=== PATIENT | male | born 1955 | race Caucasian/White ===

== ENCOUNTER 2019-10-04 07:14 | Inpatient (IN) ==
--- NOTE | 2019-09-21 22:42 | PAT Medication Instructions ---
Medication Instructions Date of Service September 21, 2019 Home Medications Celebrex 1 dose PO UD PRN lisinopril 20 mg PO QAM naproxen sodium [Aleve] 220 mg PO UD PRN sildenafil 100 mg PO UD PRN ASK your surgeon for instructions Celebrex 1 dose PO UD PRN naproxen sodium [Aleve] 220 mg PO UD PRN DO NOT take the morning of surgery lisinopril 20 mg PO QAM Take evening before surgery sildenafil 100 mg PO UD PRN (if needed) Other Notes If you have any questions please call us at [phone] or [phone] or [phone] or [phone]
--- NOTE | 2019-09-22 11:43 | Anesthesiology Consultation ---
Date of Service September 22, 2019 Assessment & Plan (1) Encounter for pre-operative examination: Chart Review Chart Review: Acceptable Risk for Surgery (pending pre op testing -- labs, ekg, cxr, and surgeon-ordered PCP clearance) and Patient seen in Pre Admission Testing Teaching & Discussion Instructed NPO after midnight before surgery, except medications with 15 cc of water. Medication instructions provided according to the PAT guidelines. History Surgery Operation Date: 10/04/19 07:00 Proposed Procedures p Left Total Knee Arthroplasty - Brodie Hobbs DO Height/Weight Height: 5 ft 10 in Weight: 76.2 kg Allergies Allergy/AdvReac Type Severity Reaction Status Date / Time Penicillins Allergy Unknown A KID, Verified 09/15/19 09:01 ITCHY ON BOTTOM OF FEET AND HANDS Medications Home Medications Medication Instructions Recorded Confirmed Last Taken Celebrex 1 dose PO UD PRN 09/15/19 09/15/19 Unknown lisinopril 20 mg PO QAM 09/15/19 09/15/19 09/15/19 naproxen sodium [Aleve] 220 mg PO UD PRN 09/15/19 09/15/19 Unknown sildenafil 100 mg PO UD PRN 09/15/19 09/15/19 Unknown Past Medical History Medical History Anxiety Hypertension Osteoarthritis Exercise / Class Metabolic Activity II 4-5 Yardwork/Stairs/Walk up hill (Using crutch to keep weight off of operative knee) Past Surgical History Surgical History History of arthroscopy of right knee History of carpal tunnel surgery of left wrist History of carpal tunnel surgery of right wrist History of colonoscopy History of left knee surgery Past Anesthesia History No Hx of Anesthesia Complications and No Family Hx of Anesthesia Complications History of PONV No Hx of PONV and No Hx of Motion Sickness Social History Smoking Status: Current every day smoker tobacco type: cigars Smoking cigarettes per day: 2 A DAY/ ADVISED NPO Do You Dip or Chew Tobacco: No Hx Alcohol Use: No Hx Substance Use: No substance use type: does not use Review of Systems Pt denies any recent chest pain, shortness of breath, palpitations, cough, fever or URI. Physical Exam Vital Signs BP: 131/72 P: 59bpm SPO2: 97% RA T: 97.8 F R: 16 ENMT Mouth: + dental restorations (gold fillings); no chipped teeth and no loose teeth Thyromental Distance: > or= 3.5 Finger Breadths (4) Mallampati Class: I Neck normal visual inspection and + facial hair (short mustache); neck extension not limited Respiratory normal respiratory effort Auscultation: lungs clear to auscultation bilaterally Cardiovascular Rate/Rhythm: regular rate and regular rhythm Heart Sounds: no murmur Vessels: no carotid bruit Extremities: no edema
[2019-09-22 12:55] LABS: Appearance Urine Clear (Clear); Bilirubin Urine Negative (Negative); Blood Urine Negative (Negative); Color Urine Yellow; Glucose Urine UA Negative (Negative); Ketones Urine Negative (Negative); Leukocyte Esterase Urine Negative (Negative); Nitrite Urine Negative (Negative); Protein Urine Negative (Negative); Specific Gravity Urine 1.014 (1.000-1.030); Urobilinogen Urine Negative (Negative); pH Urine 6.5 (4.5-7.5)
--- NOTE | 2019-09-22 12:55 | XRay Report ---
TWO VIEW CHEST CLINICAL HISTORY: Preoperative examination. FINDINGS: PA and lateral chest radiographs are obtained No prior studies are available for comparison at the time of dictation. The PA view is degraded by patient rotation. The heart is top normal for p rojection noting atherosclerotic calcification of the thoracic aorta. The lungs and pleural spaces a re clear. There is no pneumothorax. The skeletal structures are osteopenic. The bony thorax appears i ntact. Degenerative change is noted in the thoracic spine. IMPRESSION: No active disease in the chest. ACT 112: Negative or not required by law. Electronically signed by: Mat Brandon M.D. 09/22/2019 12:54 PM
[2019-09-22 12:56] LABS: Basophils # (auto) 0.02 K/uL (0-0.2); Basophils % (auto) 0.3 %; Eosinophils # (auto) 0.02 K/uL (0-0.5); Eosinophils % (auto) 0.3 %; Hematocrit (blood only) 35.7 % (42-52); Hemoglobin 11.8 g/dL (14.0-18.0); Immature Granulocytes # (auto) 0.01 K/uL (0.00-0.02); Immature Granulocytes % (auto) 0.2 %; Lymphocytes # (auto) 0.63 K/uL (1.2-3.4); Lymphocytes % (auto) 9.8 %; Mean Corpuscular Hemoglobin 31.1 pg (25-34); Mean Corpuscular Hgb Conc 33.1 g/dL (32-36); Mean Corpuscular Volume 94.2 fL (80-100); Mean Platelet Volume 9.3 fL (7.4-10.4); Monocytes # (auto) 0.33 K/uL (0.11-0.59); Monocytes % (auto) 5.1 %; Neutrophils # (auto) 5.42 K/uL (1.4-6.5); Neutrophils % (auto) 84.3 %; Platelet Count 355 K/uL (130-400); RDW Standard Deviation 48.2 fL (36.4-46.3); Red Blood Count 3.79 M/uL (4.7-6.1); White Blood Count 6.43 K/uL (4.8-10.8)
[2019-09-22 13:03] LABS: Albumin Level 3.5 gm/dl (3.4-5.0); Calcium 9.3 mg/dl (8.5-10.1); Creatinine Clr Calc Pharmacy 90.5 ml/min; Est GFR (African American) 106.5; Est GFR (Non-African American) 91.9; Potassium 4.1 mmol/L (3.5-5.1)
[2019-09-22 13:07] LABS: Estimated Average Glucose 117 mg/dl; Hemoglobin A1C 5.7 % (4.5-5.6)
[2019-09-22 13:08] LABS: Partial Thromboplastin Ratio 0.9; Partial Thromboplastin Time 25.4 Seconds (21.0-31.0); Prothrombin Time 10.5 Seconds (9.0-12.0)
--- NOTE | 2019-09-22 16:28 | History & Physical Report ---
Date of Service September 22, 2019 date of surgery: 10/04/19 Assessment & Plan (1) Arthritis of knee, left: Risks and benefits of procedure discussed in detail today, patient would like to proceed with a Left total knee replacement at [facility] as scheduled. will obtain medical clearance from Dr Valles prior to surgery as well as obtain PATs at [facility]. Will place on ASA 81mg po bid x 1 month post op, f/u 2 weeks post op for routine post-operative care and x-ray, sooner if having any problems. will make arrangements for OPPT at [facility] at the time of discharge. At this point in time, has failed conservative measures and would like to proceed with surgical intervention. History of Present Illness Chief Complaint: left knee pain Primary Care Provider: Mike Valles Mr Walker is a 63 year old male who complains of left knee pain, presents for pre-op evaluation prior to a left total knee replacement at [facility]. He presents with pain and stiffness on the left side. He states that the symptoms have been chronic non-traumatic. The symptoms occur constantly with intermittent worsening. Currently the patient states that the symptoms are moderate-severe. The pain is described as aching and throbbing. He rates his current pain as 8/10. The symptoms are aggravated by ascending stairs, descending stairs, walki ng and work activities. In addition to left knee pain the patient is also experiencing crunching, instability, weakness, pain in bed, nighttime awakening and limping. Prior NSAIDs include Aleve and Ibuprofen. Allergies Allergy/AdvReac Type Severity Reaction Status Date / Time Penicillins Allergy Unknown A KID, Verified 09/15/19 09:01 ITCHY ON BOTTOM OF FEET AND HANDS Home Medications Home Medications Medication Instructions Recorded Confirmed Type Celebrex 1 dose PO UD PRN 09/15/19 09/15/19 History lisinopril 20 mg PO QAM 09/15/19 09/15/19 History naproxen sodium [Aleve] 220 mg PO UD PRN 09/15/19 09/15/19 History sildenafil 100 mg PO UD PRN 09/15/19 09/15/19 History Past Med/Surg History Medical History Anxiety Hypertension Osteoarthritis Surgical History History of arthroscopy of right knee History of carpal tunnel surgery of left wrist History of carpal tunnel surgery of right wrist History of colonoscopy History of left knee surgery Family History (Updated 09/22/19 @ 16:25 by Pritesh Jose PA-C) Unknown No family history of adverse response to anesthesia Social History Preferred Language: Chinese Communication Ability: Effective Sewer Pipe Layer Required: No Beliefs That Will Affect Care: None Current Living Situation: Spouse Other Information That Helps Us Care for You: No Feels Safe at Home: Yes Smoking Status: Current every day smoker Tobacco Type: cigars ; Cigarettes Per Day: 2 A DAY/ ADVISED NPO ; Do You Dip or Chew Tobacco: No ; Hx Alcohol Use: No Hx Substance Use: No Review of Systems Review of Systems: All systems reviewed & are unremarkable except as noted in HPI & below Constitutional: no fever, no chills and no sweats Respiratory: no cough and no dyspnea Cardiovascular: no chest pain, no dyspnea and no orthopnea Gastrointestinal: no abdominal pain, no nausea and no vomiting Musculoskeletal: as per Subjective / HPI Physical Exam Physical Exam: Ht: 5ft 10in wt: 76.2kg BP: 116/62 Pulse: 62 Constitutional: WD/WN, vitals as above no acute distress Respiratory: normal respiratory effort, lungs clear to auscultation no respiratory distress, no labored breathing and does not use accessory muscles Cardiovascular: RRR, no murmur, no edema Gastrointestinal (Abdomen): normal bowel sounds, soft, nontender, no hepat osplenomegaly Musculoskeletal: Knee: + knee abnormal to inspection (Left knee), + deformity (varus deformity), + effusion (+1 effusion), + surgical incision (well healed portals), + limited ROM of knee (ROM 0/3/110), + knee ROM with crepitation, + kenneth int line tenderness (medial joint line) and + Rogers's sign positive; no skin erythema, no ecchymosis, no valgus laxity, no varus laxity, anterior drawer test negative, Tuyet's sign negative and pivot shift test negative Results & Data Laboratory Results Laboratory Results WBC 6.43 K/uL (4.8-10.8) 09/22/19 11:58 RBC 3.79 M/uL (4.7-6.1) L 09/22/19 11:58 Hgb 11.8 g/dL (14.0-18.0) L 09/22/19 11:58 Hct 35.7 % (42-52) L 09/22/19 11:58 MCV 94.2 fL (80-100) 09/22/19 11:58 MCH 31.1 pg (25-34) 09/22/19 11:58 MCHC 33.1 g/dL (32-36) 09/22/19 11:58 RDW Std Deviation 48.2 fL (36.4-46.3) H 09/22/19 11:58 RDW Coeff of Helen 14.0 % (11.5-14.5) 09/22/19 11:58 Plt Count 355 K/uL (130-400) 09/22/19 11:58 MPV 9.3 fL (7.4-10.4) 09/22/19 11:58 Immature Gran % (Auto) 0.2 % 09/22/19 11:58 Neut % (Auto) 84.3 % 09/22/19 11:58 Lymph % (Auto) 9.8 % 09/22/19 11:58 [place] % (Auto) 5.1 % 09/22/19 11:58 Eos % (Auto) 0.3 % 09/22/19 11:58 Baso % (Auto) 0.3 % 09/22/19 11:58 Immature Gran # (Auto) 0.01 K/uL (0.00-0.02) 09/22/19 11:58 Neut # (Auto) 5.42 K/uL (1.4-6.5) 09/22/19 11:58 Lymph # (Auto) 0.63 K/uL (1.2-3.4) L 09/22/19 11:58 [place] # (Auto) 0.33 K/uL (0.11-0.59) 09/22/19 11:58 Eos # (Auto) 0.02 K/uL (0-0.5) 09/22/19 11:58 Baso # (Auto) 0.02 K/uL (0-0.2) 09/22/19 11:58 PT 10.5 Seconds (9.0-12.0) 09/22/19 11:58 INR 1.0 (0.9-1.1) 09/22/19 11:58 APTT 25.4 Seconds (21.0-31.0) 09/22/19 11:58 PTT Ratio 0.9 09/22/19 11:58 Sodium 136 mmol/L (136-145) 09/22/19 11:58 Potassium 4.1 mmol/L (3.5-5.1) 09/22/19 11:58 Chloride 105 mmol/L (98-107) 09/22/19 11:58 Carbon Dioxide 26 mmol/L (21-32) 09/22/19 11:58 Anion Gap 6.0 (3-11) 09/22/19 11:58 BUN 10 mg/dl (7-18) 09/22/19 11:58 Creatinine 0.84 mg/dl (0.6-1.4) 09/22/19 11:58 Est Cr Clr Drug Dosing 90.5 ml/min 09/22/19 11:58 Est GFR ( Amer) 106.5 09/22/19 11:58 Est GFR (Non-Af Amer) 91.9 09/22/19 11:58 BUN/Creatinine Ratio 12.0 (10-20) 09/22/19 11:58 Glucose 111 mg/dl (70-99) H 09/22/19 11:58 Estimat Average Glucose 117 mg/dl 09/22/19 11:58 Hemoglobin A1c 5.7 % (4.5-5.6) H 09/22/19 11:58 Calcium 9.3 mg/dl (8.5-10.1) 09/22/19 11:58 Albumin 3.5 gm/dl (3.4-5.0) 09/22/19 11:58 Urine Color Yellow 09/22/19 11:58 Urine Appearance Clear (Clear) 09/22/19 11:58 Urine pH 6.5 (4.5-7.5) 09/22/19 11:58 Ur Specific Alex 1.014 (1.000-1.030) 09/22/19 11:58 Urine Protein Negative (Negative) 09/22/19 11:58 Urine Glucose (UA) Negative (Negative) 09/22/19 11:58 Urine Ketones Negative (Negative) 09/22/19 11:58 Urine Blood Negative (Negative) 09/22/19 11:58 Urine Nitrite Negative (Negative) 09/22/19 11:58 Urine Bilirubin Negative (Negative) 09/22/19 11:58 Urine Urobilinogen Negative (Negative) 09/22/19 11:58 Ur Leukocyte Esterase Negative (Negative) 09/22/19 11:58 Blood Type A Positive 09/22/19 11:58 Antibody Screen NEGATIVE 09/22/19 11:58 Diagnostic Findings Left Knee X-ray from 08/08/19 left knee series confirm advanced degenerative changes to the left knee, greatest medial compartments and patellofemoral joint, showing joint space narro wing, osteophyte formation and subchondral sclerosis. no acute bony pathology noted.
--- NOTE | 2019-09-23 07:44 | Electrocardiogram Report ---
Test Reason : Blood Pressure : / mmHG Vent. Rate : 057 BPM Atrial Rate : 057 BPM P-R Int : 180 ms QRS Dur : 084 ms QT Int : 430 ms P-R-T Axes : 082 051 049 degrees QTc Int : 418 ms Sinus bradycardia Moderate voltage criteria for LVH, may be normal variant Abnormal ECG No previous ECGs available Confirmed by Pop Heredia ([id number]) on 09/23/2019 7:43:42 AM Referred By: Brodie Hobbs Confirmed By:Iasak Heredia
[~2019-10-04 07:14] MED LIST: ACETAMINOPHEN 500 MG TAB PO SCH; BUPIVACAINE 0.25% 30 ML VIAL ONE; BUPIVACAINE 0.5 % 5 MG/1 ML PF 10ML VIAL ONE; CEFAZOLIN 1000MG 1,000 MG/7.5 ML SYR IV SCH; CeleBREX 200 MG CAP PO SCH; FAMOTIDINE 20 MG TAB PO SCH; GABAPENTIN 300 MG CAP PO SCH; LR 500ML BOLUS, THEN 15ML/HR IV SCH; METOCLOPRAMIDE HCL 10 MG TABLET PO SCH; ROPIVACAINE 0.5% HCL/PF 150 MG, BUPIVACAINE 0.5% MPF 30 ML, EPINEPHrine 30MG/30ML (OR U... INFIL SCH; TRANEXAMIC ACID 1,000 MG **IV Intra-op IV SCH; VANCOMYCIN HCL 1,000 MG/270 ML BAG IV SCH; VANCOMYCIN HCL 1,250 MG in SODIUM CHLORIDE 0.9% 250 ML IV SCH; dexAMETHasone 4 MG TAB PO SCH
[2019-10-04] MEDS ORDERED: MIDAZOLAM HCL 1 MG/ML 2ML VIAL ONE (07:37)
[2019-10-04] MEDS ORDERED: fentaNYL citrate 100 MCG/2 ML VIAL ONE (07:37)
--- NOTE | 2019-10-04 08:21 | History & Physical Bridge Note ---
Date of Service October 04, 2019 History & Physical Bridge Note I have examined the patient, reviewed the History & Physical and in the interval since the performance of the History & Physical I have noted the following changes of clinical significance: no changes noted
[2019-10-04] MEDS ORDERED: ATROPINE SULFATE 0.1 MG/ML 10ML SYR IV PRN (08:24)
[2019-10-04] MEDS ORDERED: ONDANSETRON INJ 2 MG/ML 2 ML VIAL IV PRN ×2 (08:24→12:56)
[2019-10-04] MEDS ORDERED: fentaNYL citrate 100 MCG/2 ML VIAL IV PRN (08:24)
[2019-10-04] MEDS ORDERED: ePHEDrine sulfate 50 MG/ML AMP IV PRN (08:24)
[2019-10-04] MEDS ORDERED: ORTHO JOINT ANESTHETIC ONE (08:56)
[2019-10-04] MEDS ORDERED: BACITRACIN INJ 50,000 UNIT VIAL ONE (08:56)
[2019-10-04] MEDS: TRANEXAMIC ACID 1,000 MG **IV Pre-op IV SCH ×2 (09:33→09:50)
[2019-10-04] MEDS ORDERED: PROPOFOL IV EMULSION 10 MG/ML 20 ML VIAL IV ONE (10:37)
--- NOTE | 2019-10-04 11:24 | Operative Report ---
Post Operative Report Pre & Post Diagnosis Operation Date: 10/04/19 10:00 Pre-Op Diagnosis: LEFT KNEE OSTEOARTHRITIS Post-Op Diagnosis: LEFT KNEE OSTEOARTHRITIS I identified the patient and participated in the time-out.: Yes Procedure Operation Date: 10/04/19 10:00 Actual Procedures utilizing [employer] total knee arthroplasty patient matched size femur 7 tibia 6 polyethylene 13 patella 35 oval p Left Total Knee Arthroplasty(Left) - Brodie Hobbs DO Surgeon Brodie Hobbs DO Asset Card Clerk LANIE Agustin Estimated Blood Loss 5 Findings Consistent with Post-Op Diagnosis With high-end severe degenerative joint disease with significant varus alignment large medial osteophytes medial bone loss [id number] subcortical and subchondral cystic formations marginal osteophytes large effusion with a 15 degree flexion contracture and a high-grade varus alignment Specimens Bone cartilage Drains Medium bore Hemovac Complications none Disposition Accompanied Patient To Recovery: No Disposition: Recovery Room Indications Patient presents as a [age]-year-old white male with severe end-stage degenerative joint disease left knee bone loss medially with varus alignment 15 degree flexion contracture failed attempted conservative management clinic physical therapy anti-inflammatories relative rest activity modification corticosteroid injections bracing and nonsteroidal anti-inflammatories patient presents for left total knee arthroplasty Description of Procedure I initiation of general anesthesia the left lower extremity socially prepped and draped usual fashion for surgery this type anterior midline incision was made dissection carried down to the region the medial parapatellar retinaculum the medial parapatellar retinacular incision was made with patella subluxed lateralward large medial osteophytes were noted with loose fragments of bone which were removed the patella was everted and was the arthritic surface was resected and sized to a size 35 was prepared for later resurfacing subsequently a utilizing the distal femoral custom fit guide the distal femoral osteotomy cuts were made osteophytes were removed synovectomy had already been performed the proximal tibia was subsequently evaluated utilizing proximal tibial osteotomy custom fit guide the proximal tibial osteotomy was performed on the medial osteophytes were removed medial capsule was also been released around the posterior medial aspect of the proximal tibia specialized was paid to protect neurovascular structures at all times the trials of the components a size 7 femur with a size 6 tibia and a size 13 poly-gave excellent stability and full extension with excellent stability in both flexion extension mid flexion having taken trials through range of motion patellar component was placed the patella was also noted be tracking in excellent position throughout all ranges of motion the wound was then thoroughly irrigated with copious amounts of sterile saline solution a joint mix injection was placed in the posterior capsule special attention to avoid neurovascular structures the wound was once again irrigated with copious muscle sterile saline solution the final components were brought into the field and prepared cement was mixed and subsequently the components were cemented in order tibia femur patella all excess cement was removed stability was noted to be excellent in both extension flexion mid flexion patellar tracking was noted to be excellent subsequently the medial parapatellar incision closed with #1 Vicryl subcu was closed with 3-0 Vicryl skin was closed with running Monocryl and skin glue sterile compressive dressing was placed a medium bore Hemovac in place in the deep wound please note LANIE Henriquez was necessary prepping draping traction wound closure defect subcu skin was necessary for the case I attest to the content of the Intraoperative Record and any orders documented therein. Any exceptions are noted below.
[2019-10-04] MEDS ORDERED: METOCLOPRAMIDE HCL INJ 5 MG/ML 2 ML VIAL IV PRN (12:56)
[2019-10-04] MEDS ORDERED: OXYCODONE HCL IR 5 MG TAB (IMMEDIATE RELEASE) PO PRN (12:56)
[2019-10-04] MEDS ORDERED: bisacodyL 10 MG SUPP PR PRN (12:56)
[2019-10-04] MEDS ORDERED: MAGNESIUM HYDROXIDE SUSP 30 ML UDC PO PRN (12:56)
[2019-10-04] MEDS ORDERED: ALUMINUM/MAGNESIUM SUSP 30 ML UDC PO PRN (12:56)
[2019-10-04] MEDS ORDERED: NALOXONE HCL 0.4 MG/1 ML VIAL/CARP IV PRN (12:56)
[2019-10-04] MEDS ORDERED: HYDROmorphone INJ 1 MG/ML SYRINGE IV PRN (12:56)
[2019-10-04] MEDS: SODIUM CHLORIDE 0.9% 1000ML 1,000 ML IV SCH ×2 (13:28→21:26)
[2019-10-04] MEDS: KETOROLAC TROMETHAMINE 15 MG/ML VIAL IV SCH ×2 (13:32→20:40)
--- NOTE | 2019-10-04 13:36 | XRay Report ---
TWO VIEWS LEFT KNEE CLINICAL HISTORY: Postoperative examination. FINDINGS: AP and crosstable lateral portable views of the left knee are obtained. A left knee arthrop lasty is in near anatomic alignment. There has been undersurface remodeling of the patella. No acute fracture is seen. There are expected postoperative changes around the knee including a surgical drain , soft tissue edema, and subcutaneous gas. IMPRESSION: Expected postoperative changes status post left knee arthroplasty. No acute fracture is s een. ACT 112: Negative or not required by law. Electronically signed by: Mat Brandon M.D. 10/04/2019 1:34 PM
--- NOTE | 2019-10-04 13:51 | Anesthesiology Progress Note ---
Date of Service October 04, 2019 Anesthesia Post Procedure Vital Signs Vital Signs: Temp Pulse Pulse Pulse Resp BP Pulse Ox 10/04/19 13:49 69 16 117/64 98 10/04/19 13:43 36.5 C 63 18 109/62 98 10/04/19 13:16 36.2 C L 66 18 110/72 97 10/04/19 12:45 36.5 C 60 16 118/65 99 10/04/19 12:40 62 16 113/63 99 10/04/19 12:30 36.8 C 67 16 109/62 99 10/04/19 12:20 66 16 125/61 99 10/04/19 12:10 66 14 116/63 97 10/04/19 12:03 36.9 C 66 12 130/68 100 10/04/19 07:52 37.1 C 65 18 135/75 99 Transfer of Care Handoff Completed per policy Notes Mental Status: alert / awake / arousable Patient Amnestic to Procedure: Yes Nausea / Vomiting: adequately controlled Pain: adequately controlled Airway Patency, RR, SpO2: stable & adequate BP & HR: stable & adequate Hydration State: stable & adequate Neuraxial Anesthesia: was administered and sensory block is resolving Anesthetic Complications: no major complications apparent and Pt Satisfied with anesthetic care
[2019-10-04] MEDS: ACETAMINOPHEN 500 MG TAB PO SCH ×2 (16:29→22:22)
[2019-10-04] MEDS: CEFAZOLIN 2000MG 2,000 MG/15 ML SYR IV SCH ×2 (16:30→23:18)
[2019-10-04] MEDS: DOCUSATE SODIUM 100 MG CAP PO SCH (20:42)
[2019-10-04] MEDS ORDERED: SENNA 8.6 MG TAB PO SCH (21:00)
[2019-10-04] MEDS: ASPIRIN 81 MG ECTAB PO SCH (21:12)
[2019-10-05] MEDS: KETOROLAC TROMETHAMINE 15 MG/ML VIAL IV SCH ×2 (02:42→08:26)
[2019-10-05] MEDS: ACETAMINOPHEN 500 MG TAB PO SCH (05:19)
[2019-10-05 05:22] LABS: Hematocrit (blood only) 30.2 % (42-52); Hemoglobin 10.3 g/dL (14.0-18.0); Mean Corpuscular Hemoglobin 31.2 pg (25-34); Mean Corpuscular Hgb Conc 34.1 g/dL (32-36); Mean Corpuscular Volume 91.5 fL (80-100); Mean Platelet Volume 9.2 fL (7.4-10.4); Platelet Count 275 K/uL (130-400); RDW Coefficient of Variation 13.6 % (11.5-14.5); RDW Standard Deviation 45.3 fL (36.4-46.3); White Blood Count 13.05 K/uL (4.8-10.8)
[2019-10-05 05:40] LABS: BUN Creatinine Ratio 22.4 (10-20); Calcium 8.5 mg/dl (8.5-10.1); Creatinine Clr Calc Pharmacy 81.6 ml/min; Est GFR (African American) 100.1; Est GFR (Non-African American) 86.4
--- NOTE | 2019-10-05 07:14 | Anesthesiology Progress Note ---
Date of Service October 05, 2019 Anesthesia Post Procedure Vital Signs Vital Signs: Temp Pulse Pulse Pulse Resp BP Pulse Ox 10/05/19 02:44 36.5 C 64 18 116/64 98 10/04/19 23:25 36.4 C L 64 20 153/85 H 99 10/04/19 20:00 36.6 C 62 16 120/70 99 10/04/19 14:50 36.5 C 60 16 118/67 99 10/04/19 13:49 69 16 117/64 98 10/04/19 13:43 36.5 C 63 18 109/62 98 10/04/19 13:16 36.2 C L 66 18 110/72 97 10/04/19 12:45 36.5 C 60 16 118/65 99 10/04/19 12:40 62 16 113/63 99 10/04/19 12:30 36.8 C 67 16 109/62 99 10/04/19 12:20 66 16 125/61 99 10/04/19 12:10 66 14 116/63 97 10/04/19 12:03 36.9 C 66 12 130/68 100 10/04/19 07:52 37.1 C 65 18 135/75 99 Pain Intensity Left Knee: Pain Intensity: 1 Notes Mental Status: alert / awake / arousable and participated in evaluation Nausea / Vomiting: adequately controlled Pain: adequately controlled Airway Patency, RR, SpO2: stable & adequate BP & HR: stable & adequate Hydration State: stable & adequate Neuraxial Anesthesia: sensory block is resolving Anesthetic Complications: Pt Satisfied with anesthetic care
[2019-10-05] MEDS: DOCUSATE SODIUM 100 MG CAP PO SCH (08:25)
[2019-10-05] MEDS: ASPIRIN 81 MG ECTAB PO SCH (08:25)
--- NOTE | 2019-10-05 08:37 | Orthopedic Progress Note ---
Date of Service October 05, 2019 Assessment & Plan (1) Arthritis of knee, left: POD 1 s/p Left TKA PT/OT. WBAT. DVT prophylaxis - ASA, SCD's, PHILIPPE's Pain management - OxyIR, Hydromorphone DC plans - dc to home with Services when ready Subjective POD 1 Pt sitting in chair at bedside. No complaints this AM. Pain controlled. Had some mild pain in the knee early AM but relieved with current pain regimen. No other complaints this AM. Denies SOB,CP,LH. Hoping to go home today. Physical Exam Physical Exam: Dressings C/D/I. Calves soft,NT. N/V intact. Good DF/PF. 325ml from HV on the previous shift. Results & Data Vital Signs (Past 12 Hours) Vital Signs Temp Pulse Resp BP Pulse Ox 10/05/19 07:40 36.7 C 64 16 124/63 98 10/05/19 02:44 36.5 C 64 18 116/64 98 10/04/19 23:25 36.4 C L 64 20 153/85 H 99 Laboratory Results Laboratory Results WBC 13.05 K/uL (4.8-10.8) H 10/05/19 05:05 RBC 3.30 M/uL (4.7-6.1) L 10/05/19 05:05 Hgb 10.3 g/dL (14.0-18.0) L 10/05/19 05:05 Hct 30.2 % (42-52) L 10/05/19 05:05 MCV 91.5 fL (80-100) 10/05/19 05:05 MCH 31.2 pg (25-34) 10/05/19 05:05 MCHC 34.1 g/dL (32-36) 10/05/19 05:05 RDW Std Deviation 45.3 fL (36.4-46.3) 10/05/19 05:05 RDW Coeff of Helen 13.6 % (11.5-14.5) 10/05/19 05:05 Plt Count 275 K/uL (130-400) 10/05/19 05:05 MPV 9.2 fL (7.4-10.4) 10/05/19 05:05 Immature Gran % (Auto) 0.2 % 09/22/19 11:58 Neut % (Auto) 84.3 % 09/22/19 11:58 Lymph % (Auto) 9.8 % 09/22/19 11:58 [place] % (Auto) 5.1 % 09/22/19 11:58 Eos % (Auto) 0.3 % 09/22/19 11:58 Baso % (Auto) 0.3 % 09/22/19 11:58 Immature Gran # (Auto) 0.01 K/uL (0.00-0.02) 09/22/19 11:58 Neut # (Auto) 5.42 K/uL (1.4-6.5) 09/22/19 11:58 Lymph # (Auto) 0.63 K/uL (1.2-3.4) L 09/22/19 11:58 [place] # (Auto) 0.33 K/uL (0.11-0.59) 09/22/19 11:58 Eos # (Auto) 0.02 K/uL (0-0.5) 09/22/19 11:58 Baso # (Auto) 0.02 K/uL (0-0.2) 09/22/19 11:58 PT 10.5 Seconds (9.0-12.0) 09/22/19 11:58 INR 1.0 (0.9-1.1) 09/22/19 11:58 APTT 25.4 Seconds (21.0-31.0) 09/22/19 11:58 PTT Ratio 0.9 09/22/19 11:58 Sodium 135 mmol/L (136-145) L 10/05/19 05:05 Potassium 4.0 mmol/L (3.5-5.1) 10/05/19 05:05 Chloride 107 mmol/L (98-107) 10/05/19 05:05 Carbon Dioxide 23 mmol/L (21-32) 10/05/19 05:05 Anion Gap 5.0 (3-11) 10/05/19 05:05 BUN 21 mg/dl (7-18) H 10/05/19 05:05 Creatinine 0.92 mg/dl (0.6-1.4) 10/05/19 05:05 Est Cr Clr Drug Dosing 81.6 ml/min 10/05/19 05:05 Est GFR ( Amer) 100.1 10/05/19 05:05 Est GFR (Non-Af Amer) 86.4 10/05/19 05:05 BUN/Creatinine Ratio 22.4 (10-20) H 10/05/19 05:05 Glucose 123 mg/dl (70-99) H 10/05/19 05:05 Estimat Average Glucose 117 mg/dl 09/22/19 11:58 Hemoglobin A1c 5.7 % (4.5-5.6) H 09/22/19 11:58 Calcium 8.5 mg/dl (8.5-10.1) 10/05/19 05:05 Albumin 3.5 gm/dl (3.4-5.0) 09/22/19 11:58 Urine Color Yellow 09/22/19 11:58 Urine Appearance Clear (Clear) 09/22/19 11:58 Urine pH 6.5 (4.5-7.5) 09/22/19 11:58 Ur Specific [place] 1.014 (1.000-1.030) 09/22/19 11:58 Urine Protein Negative (Negative) 09/22/19 11:58 Urine Glucose (UA) Negative (Negative) 09/22/19 11:58 Urine Ketones Negative (Negative) 09/22/19 11:58 Urine Blood Negative (Negative) 09/22/19 11:58 Urine Nitrite Negative (Negative) 09/22/19 11:58 Urine Bilirubin Negative (Negative) 09/22/19 11:58 Urine Urobilinogen Negative (Negative) 09/22/19 11:58 Ur Leukocyte Esterase Negative (Negative) 09/22/19 11:58 Blood Type A Positive 09/22/19 11:58 Antibody Screen NEGATIVE 09/22/19 11:58
[2019-10-05] MEDS ORDERED: lisinopriL 20 MG TAB PO SCH (09:00)
[2019-10-05] MEDS ORDERED: MULTIVITAMIN TAB PO SCH (09:00)
--- NOTE | 2019-10-05 18:56 | Discharge Summary ---
Date of Service date of discharge: October 05, 2019 date of admission: 10-04-19 Admission HPI Per Admitting Provider Mr Walker is a 63 year old male who complains of left knee pain, presents for pre-op evaluation prior to a left total knee replacement at [facility]. He presents with pain and stiffness on the left side. He states that the symptoms have been chronic non-traumatic. The symptoms occur constantly with intermittent worsening. Currently the patient states that the symptoms are moderate-severe. The pain is described as aching and throbbing. He rates his current pain as 8/10. The symptoms are aggravated by ascending stairs, descending stairs, walking and work activities. In addition to left knee pain the patient is also experiencing crunching, instability, weakness, pain in bed, nighttime awakening and limping. Prior NSAIDs include Aleve and Ibuprofen. Principal Diagnosis left knee arthritis Discharge Exam Vital Signs Temp 36.7 C 10/05/19 13:24 Pulse 64 10/05/19 13:24 Resp 16 10/05/19 13:24 BP 124/63 10/05/19 13:24 Pulse Ox 98 10/05/19 13:24 Intake & Output 10/04/19 10/05/19 10/05/19 18:59 06:59 18:59 Intake Total 2525 / 4576.667 2051.667 / 4576.667 Output Total 2589 2575 / 2590 50 / 50 Balance 2510 / 1985.667 -523.333 / 1985.667 -50 / -50 Weight 75.7 kg 75.7 kg Intake: IV 1475 / 2366.667 891.667 / 2366.667 Lr 1,000 ml @ 15 mls/hr IV . 1000 / 1000 Q24H LUIS Rx#:[id number] Nss 1000ML 1,000 ml @ 100 mls/ 891.667 / 891.667 hr IV .Q10H LUIS Rx#:[id number] TRANEXAMIC ACID / 0.7% NACL 1, 200 / 200 000 mg In 100 ml @ 600 mls/hr IV TODAY@0600 LUIS Rx#:[id number] Vancomycin HCl 1,250 mg In Nss 275 / 275 250 ml @ 250 mls/hr IV PREOP LUIS Rx#:[id number] IV Perioperative 800 / 800 Oral 250 / 1410 1160 / 1410 Output: Urine 1900 / 1900 Estimated Blood Loss 5 / 5 Drain Output / 50 / 50 Left Knee Hemovac / 50 / 50 Constitutional WD/WN, vitals as above no acute distress Musculoskeletal left knee: NVDI, calf SNT, negative aaron sign. DP palpable, able to wiggle toes/ankle movement without difficulty. dressing clean dry and intact. expected post-operative bruising noted. Discharge Data Allergies Allergy/AdvReac Type Severity Reaction Status Date / Time Penicillins Allergy Unknown A KID, Verified 10/04/19 07:49 ITCHY ON BOTTOM OF FEET AND HANDS Consultations 10/04/19 12:56 Consult Case Management - Discharge Planning Routine Procedures Performed Operation Date: 10/04/19 10:00 Actual Procedures p Left Total Knee Arthroplasty(Left) - Brodie Hobbs DO Ordered Studies 10/04/19 05:00 US - OR guided needle placemen Routine Hospital Course (1) Arthritis of knee, left: POD 1 s/p Left TKA PT/OT. WBAT. DVT prophylaxis - ASA, SCD's, PHILIPPE's Pain management - OxyIR, Hydromorphone DC plans - dc to home with Services when ready Total Time Total Time Spent Total Time Spent (In Minutes): 20 Total Time Includes: Examination of the Patient, Discharge Planning and Medication Reconciliation Discharge Plan Discharge Items Patient Disposition: Home - Home Health Services Reason For Visit: LEFT KNEE OSTEOARTHRITIS Discharge Diagnosis: left total knee replacement Activity: Per Instructions section Weightbearing: Full weightbearing Non-emergency contact: Surgeon Call non-emergency contact if: you have any medication questions, your temperature is above 101, your wound has increased redness, your wound has increased drainage and your wound pain has increased Follow-up/Referrals: Mike Valles D.OKneney [Primary Care Provider] - Diet: Regular Addtl Attending Provider Instructions: ACTIVITY RECOMMENDATIONS: SELF CARE INSTRUCTIONS AFTER TOTAL KNEE REPLACEMENT A. You may need to continue a physical therapy program after discharge from the hospital. There are several options available to you. Your doctor will assist you in selecting the best one for you. 1. An out-patient facility 2 to 3 times a week for therapy or home therapy. 2. Continue working on all exercises taught to you in the hospital. Your goals should be to increase bending of your knee to 90 degrees and beyond and to fully straighten your knee. B. You may progress at your own pace from walking with a walker or crutches to a cane; then to no assistive devices. C. Make walking a part of your daily routine. Be up as much as comfortable with rest periods throughout the day. Rest with leg elevation is very important. Use the ice wrap frequently for the first 3-4 weeks. D. There are no restrictions on activities. You may ride in a car, shop, part icipate in gravity prospecting operator and all social activities. E. Wear the long elastic stockings (PHILIPPE hose) 20 hours a day for 2 weeks after surgery. They can be removed several times a day for laundering and for a bath. F. You may shower, no tub baths until cleared by your doctor. SPECIAL CARE INSTRUCTIONS: VERY IMPORTANT TO READ AND REVIEW A. There are a few signs you need to watch for after you are home. Call [facility] if you notice any of the followin. Increased severe knee pain. Some pain is expected especially when you exercise. 2. Increased swelling in your leg or knee; pain or swelling of the calf muscle in either lower leg. 3. Any fluid drainage from the incision. 4. Shortness of breath or chest pain. B. Please call [facility] at if you have any concerns or questions about your operation or recovery. The doctor or his nurse will return your call promptly. C. You must take antibiotics before dental work, bladder, bowel or other surgery. Your doctor will provide you with a permanent care to carry describing t his precaution. IMPORTANT: * REMEMBER TO TAKE ASPIRIN, 81 MG, TWICE DAILY FOR 4 WEEKS UNLESS OTHERWISE DIRECTED. THIS IS YOUR BLOOD THINNER. * HIGH RISK PATIENTS MAY BE PRESCRIBED A STRONGER BLOOD THINNER. THIS WILL BE PROVIDED AT DISCHARGE. * CALL IF INCREASED PAIN, REDNESS, DRAINAGE OR FEVER GREATER THAT 101. * WEAR PHILIPPE HOSE 20 HOURS PER DAY FOR 2 WEEKS. * DERMABOND Prineo- This is a mesh tape dressing that is covered with glue. It should remain in place until the incision is properly healed, usually 10-14 days. This dressing is designed to naturally slough off. You may trim the excess mesh tape as it peels off. Incision may be briefly wet in a shower. Dry immediately by blotting with a clean, dry towel. Do not bath or swim until instructed by your doctor. Do not scratch, rub, or pick at the dressing. Do not apply any topical ointments or lotions until dressing is completely removed and/or instructed by your doctor. There may be a small piece of suture material at one end of your incision. Do not pull or trim this. If it is bothersome or catching on clothing, you may cover it with a band-aid. IF INCISION IS LEAKING THROUGH DRESSING, CALL THE OFFICE . FOLLOW UP VISIT: If appointment is not already scheduled: Please call [facility] to make a follow-up appointment for 2 weeks after your surgery at . Pending Studies at Discharge: Yes Studies:: Pathology report Stand-Alone Forms: My [facility] [address], Opioid Pain Management, Smoking Cessation Medications and DC Order Prescriptions: New aspirin [Ecotrin Low Strength] 81 mg Tablet,Delayed Release (Dr/Ec) 81 mg PO BID 30 Days Qty: 60 RF: 0 acetaminophen 500 mg Tablet 1,000 mg PO Q8 14 Days Qty: 84 RF: 0 oxycodone 5 mg Tablet 5 mg PO Q4H MDD 6 tabs PRN (Reason: pain) Qty: 30 RF: 0 sennosides [Senokot] 8.6 mg Tablet 17.2 mg PO HS PRN (Reason: constipation) Qty: 30 RF: 0 doxycycline hyclate 100 mg capsule 100 mg PO BID 14 Days Qty: 28 RF: 1 Continued lisinopril 20 mg Tablet 20 mg PO QAM RF: 0 sildenafil 100 mg Tablet 100 mg PO UD PRN (Reason: Anxiety) RF: 0 Discontinued naproxen sodium [Aleve] 220 mg Capsule 220 mg PO UD PRN (Reason: Pain) RF: 0 Discharge Orders: Discharge Order (Routine); Ordered 10/05/19 Ordered By: Alexsander Tidwell/Other Patient Handouts: Surgery Prevent DVT After Admission Data Admit Date/Time: 10/04/19 12:15 Attending Provider: Brodie Hobbs Admit Provider: Brodie Hobbs Primary Care Provider: Mike Valles Other Interventions: Discharge Summary Assessment (RN) Last Done: 10/05/19 13:24 DC Date/Time DO NOT enter until pt leaves facility: 10/05/19 14:15
[2019-10-05] MEDS ORDERED: CeleBREX 200 MG CAP PO SCH (21:00)
== END 2019-10-05 14:15 | disposition home health service (06) | DRG 470 ==
LOC: ASU 07:14 → 3E 12:15

== ENCOUNTER 2020-10-23 08:29 | Observation (INO) ==
--- NOTE | 2020-09-25 11:42 | PAT Medication Instructions ---
Medication Instructions Date of Service September 25, 2020 Home Medications Medication Instructions Recorded oxycodone 5 mg PO Q4H PRN #30 tab MDD 6 tabs 10/05/19 sennosides [Senokot] 17.2 mg PO HS PRN #30 tab 10/05/19 lisinopril 20 mg PO PM sildenafil 100 mg PO UD PRN oxycodone 5 mg PO Q4H PRN sennosides [Senokot] 17.2 mg PO HS PRN DO NOT take the morning of surgery sildenafil 100 mg PO UD PRN Take morning of surgery With a small sip of water, OTHERWISE NOTHING TO EAT OR DRINK AFTER MIDNIGHT: oxycodone 5 mg PO Q4H PRN (okay to take up to 4 hours prior to surgery if needed) Take evening before surgery lisinopril 20 mg PO PM sildenafil 100 mg PO UD PRN (if needed) oxycodone 5 mg PO Q4H PRN (if needed) sennosides [Senokot] 17.2 mg PO HS PRN (if needed) Other Notes If you have any questions please call us at [phone] or [phone] or [phone] or [phone]
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
--- NOTE | 2020-09-27 14:41 | XRay Report ---
TWO VIEW CHEST CLINICAL HISTORY: Preoperative examination. FINDINGS: PA and lateral chest radiographs are compared to study dated 09/22/2019. The heart is mildly enlarged. Emphysematous change is suspected. Chronic interstitial thickening is similar to previous. No airspace consolidation or pleural effusion is identified. There is no pneumothorax. The skeletal s tructures are osteopenic. The bony thorax appears intact. Degenerative change is noted in the shoulde rs and thoracic spine. IMPRESSION: Mild cardiac enlargement and suspect emphysema, with no active disease in the chest. ACT 112: Negative or not required by law. Electronically signed by: Mat Brandon M.D. 09/27/2020 2:39 PM
[2020-09-27 15:22] LABS: Basophils # (auto) 0.06 K/uL (0-0.2); Eosinophils # (auto) 0.12 K/uL (0-0.5); Hematocrit (blood only) 35.6 % (42-52); Hemoglobin 11.9 g/dL (14.0-18.0); Lymphocytes # (auto) 1.25 K/uL (1.2-3.4); Lymphocytes % (auto) 20.4 %; Mean Corpuscular Hgb Conc 33.4 g/dL (32-36); Mean Corpuscular Volume 92.7 fL (80-100); Mean Platelet Volume 9.6 fL (7.4-10.4); Monocytes # (auto) 0.57 K/uL (0.11-0.59); Monocytes % (auto) 9.3 %; Neutrophils # (auto) 4.13 K/uL (1.4-6.5); Neutrophils % (auto) 67.3 %; Platelet Count 256 K/uL (130-400); RDW Coefficient of Variation 14.7 % (11.5-14.5); RDW Standard Deviation 50.4 fL (36.4-46.3); Red Blood Count 3.84 M/uL (4.7-6.1); White Blood Count 6.13 K/uL (4.8-10.8)
[2020-09-27 15:23] LABS: Albumin Level 3.6 gm/dl (3.4-5.0); BUN Creatinine Ratio 18.8 (10-20); Calcium 8.5 mg/dl (8.5-10.1); Creatinine Clr Calc Pharmacy 83.9 ml/min; Est GFR (African American) 100.7; Est GFR (Non-African American) 86.9; Potassium 4.5 mmol/L (3.5-5.1)
[2020-09-27 15:28] LABS: Appearance Urine Clear (Clear); Bacteria Urine Automated Negative (Negative); Bilirubin Urine Negative (Negative); Blood Urine Trace (Negative); Cast Urine Automated 0 /lpf (0-5); Color Urine Yellow; Epithelial Cell Urine Auto 0-5 /lpf (0-5); Glucose Urine UA Negative (Negative); Ketones Urine Negative (Negative); Leukocyte Esterase Urine Negative (Negative); Nitrite Urine Negative (Negative); Protein Urine Negative (Negative); RBC Urine Automated 0-4 /hpf (0-4); Specific Gravity Urine 1.013 (1.000-1.030); Urobilinogen Urine Negative (Negative)
[2020-09-27 15:31] LABS: Partial Thromboplastin Ratio 0.9; Partial Thromboplastin Time 25.2 Seconds (21.0-31.0); Prothrombin Time 10.5 Seconds (9.0-12.0)
[2020-09-28 06:21] LABS: Estimated Average Glucose 111 mg/dl; Hemoglobin A1C 5.5 % (4.5-5.6)
--- NOTE | 2020-09-28 11:00 | Electrocardiogram Report ---
Test Reason : Blood Pressure : / mmHG Vent. Rate : 060 BPM Atrial Rate : 060 BPM P-R Int : 190 ms QRS Dur : 084 ms QT Int : 404 ms P-R-T Axes : 079 062 040 degrees QTc Int : 404 ms Normal sinus rhythm Minimal voltage criteria for LVH, may be normal variant Abnormal ECG Confirmed by Pop Heredia ([id number]) on 09/28/2020 10:59:57 AM Referred By: Brodie Hobbs Confirmed By:Isaak Heredia
[~2020-10-23 08:29] MED LIST changes: -BUPIVACAINE 0.25% 30 ML VIAL ONE; -CEFAZOLIN 1000MG 1,000 MG/7.5 ML SYR IV SCH; +EPINEPHrine INJ 1 MG/ML AMP ONE; -LR 500ML BOLUS, THEN 15ML/HR IV SCH; +ROPIVACAINE 0.5% 5 MG/ML 30 ML VIAL ONE; -ROPIVACAINE 0.5% HCL/PF 150 MG, BUPIVACAINE 0.5% MPF 30 ML, EPINEPHrine 30MG/30ML (OR U... INFIL SCH; +ROPIVACAINE 0.5% HCL/PF 150 MG, BUPIVACAINE 0.75% MPF 20 ML, EPINEPHrine 30MG/30ML (OR ... INSTIL SCH; +TRANEXAMIC ACID 1,000 MG **IV Pre-op IV SCH; -VANCOMYCIN HCL 1,000 MG/270 ML BAG IV SCH
[2020-10-23] MEDS: LR 500ML BOLUS, THEN 15ML/HR IV SCH ×2 (08:59→11:00)
[2020-10-23] MEDS ORDERED: fentaNYL citrate 100 MCG/2 ML VIAL IV PRN (10:26)
[2020-10-23] MEDS ORDERED: ATROPINE SULFATE 0.1 MG/ML 10ML SYR IV PRN (10:26)
[2020-10-23] MEDS ORDERED: ePHEDrine sulfate 50 MG/ML AMP IV PRN (10:26)
[2020-10-23] MEDS ORDERED: ONDANSETRON INJ 2 MG/ML 2 ML VIAL IV PRN ×2 (10:26→14:33)
[2020-10-23] MEDS ORDERED: HYDROmorphone INJ 1 MG/ML SYRINGE IV PRN (10:26)
--- NOTE | 2020-10-23 10:32 | History & Physical Bridge Note ---
Date of Service October 23, 2020 History & Physical Bridge Note I have examined the patient, reviewed the History & Physical and in the interval since the performance of the History & Physical I have noted the following changes of clinical significance: no changes noted
[2020-10-23] MEDS ORDERED: fentaNYL citrate 100 MCG/2 ML VIAL ONE (10:41)
[2020-10-23] MEDS ORDERED: MIDAZOLAM HCL 1 MG/ML 2ML VIAL ONE (10:41)
[2020-10-23] MEDS ORDERED: PROPOFOL IV EMULSION 10 MG/ML 20 ML VIAL IV ONE ×2 (10:50→11:41)
[2020-10-23] MEDS ORDERED: BACITRACIN INJ 50,000 UNIT VIAL ONE (11:10)
[2020-10-23] MEDS ORDERED: ORTHO JOINT ANESTHETIC ONE (11:10)
[2020-10-23] MEDS ORDERED: ePHEDrine sulfate 50 MG/ML SYR ONE (11:45)
--- NOTE | 2020-10-23 12:38 | Operative Report ---
Post Operative Report Pre & Post Diagnosis Operation Date: 10/23/20 09:45 Pre-Op Diagnosis: Unilateral Primary Osteoarthrits Knee Right Post-Op Diagnosis: Unilateral Primary Osteoarthrits Knee Right I identified the patient and participated in the time-out.: Yes Procedure Operation Date: 10/23/20 09:45 Actual Procedures p Right Total Knee Arthroplasty(Right)Utilizing [employer] journey 2 patient matched total knee arthroplasty size 7 femur 7 tibia 15 polyethylene 32 oval patella - Brodie Hobbs DO Surgeon Brodie Hobbs DO Chute Builder Alexsander DELA CRUZ Estimated Blood Loss 10 Findings Consistent with Post-Op Diagnosis Patient presents with severe end-stage tricompartmental degenerative joint disease varus alignment subchondral cystic changes marginal osteophytes moderate to large effusion nonresponse to conservative management Specimens Bone and cartilage Drains Medium bore Hemovac Anesthesia Type MAC Spinal Regional Disposition Accompanied Patient To Recovery: No Disposition: Recovery Room Indications Patient presents with severe end-stage tricompartmental degenerative joint disease failed attempted conservative management clinic physical therapy anti- inflammatories relative rest activity modification corticosteroid injections viscosupplementation the above intraoperative findings were noted. Description of Procedure After proper prepping and draping of the Right lower extremity anterior midline incision was made over the region of the extensor extensor mechanism after meticulous hemostasis was obtained and maintained in subcutaneous tissues a medial parapatellar incision was made The patella was subluxed lateralward the medial lateral gutter were cleaned from any hypertrophic synovitis and scar tissue of the distal femoral block was placed and the distal femoral osteotomy cut was made subsequently the chamfers anterior and posterior osteotomy cuts were made utilizing the 4-in-1 block the tibia was subsequently subluxed anteriorward medial and ateral meniscal remnants were excised in their entirety remnants of the anterior and posterior cruciate ligaments were excised in their entirety excellent exposure of the proximal tibia was obtained the tibial osteotomy guide was placed on the proximal tibial osteotomy cut was made once again the knee was irrigated with copious amounts of sterile saline solution the patella was subsequently everted lateralward thickened scar tissue around the patella was removed the patella was subsequently cut utilizing a freehand te chnique and was drilled prepared for final preparation and placement of patella socially flexion-extension gaps were checked and the equal and symmetric trials were placed to the appropriate femoral and tibial trials with poly-spacer being placed for equal flexion and extension gaps and full range of motion including extension to 0 and flexion to 140 the trial components after having been taken to recovery range of motion was subsequently removed meticulous hemostasis was obtained and maintained subsequently a knee block injection of joint cocktail including ropivacaine 0.5% 150 mg. Bupivacaine 0.5% epinephrine 1-200,030 mL's toradol 30 mg dexamethasone 4 mg ketamine 10 mg clonidine 100 micrograms normal saline solution 30 mg was infiltrated into the soft tissues of the posterior knee medial lateral gutters and periosteal synovium special attention was paid to protect neurovascular structures at all times subsequently trial components having been removed the knee was irrigated with sterile saline solution. debris was removed the proximal tibia was subsequently prepared and was made ready for the placement of the tibial component tibial component was also cemented and tamped into position the femoral component was subsequently placed and cemented in the position the patellar component was subsequently cemented in position because hemostasis once again obtained and maintained wound having been thoroughly irrigated with debridement and debridement lavage was performed as well as a medial parapatellar incision closed with #1 Vicryl in interrupted fashion subcutaneous was closed with #2 Vicryl skin was closed with skin clips. PA-C was necessary for prepping and drapping as well as wound closure of deep fascia Sub cutaneous tissue and skin and was necessary for the case. A sterile compressive dressing was placed patient was taken to recovery in stable condition of report dictated by Anjel I attest to the content of the Intraoperative Record and any orders documented therein. Any exceptions are noted below. I attest to the content of the Intraoperative Record and any orders documented therein. Any exceptions are noted below.
--- NOTE | 2020-10-23 13:56 | XRay Report ---
XR knee RT 1 or 2V routine CLINICAL HISTORY: Postoperative evaluation. COMPARISON: None FINDINGS: Alignment of the total right knee arthroplasty is anatomic. There is no periprosthetic fra cture or unexpected radiopaque foreign body. There are drains and skin sushant. IMPRESSION: Expected findings following total right knee arthroplasty. ACT 112: Negative or not required by law. Electronically signed by: Liam Bernstein M.D. 10/23/2020 1:55 PM
--- NOTE | 2020-10-23 14:09 | Anesthesiology Progress Note ---
Date of Service October 23, 2020 Anesthesia Post Procedure Vital Signs Vital Signs: Temp Pulse Pulse Resp BP BP Pulse Ox 10/23/20 13:55 36.4 C L 63 19 120/67 97 10/23/20 13:45 59 L 14 113/62 96 10/23/20 13:35 66 14 126/71 97 10/23/20 13:25 63 16 116/70 97 10/23/20 13:15 36.2 C L 63 10 L 109/63 98 10/23/20 09:11 36.6 C 56 L 20 140/83 99 Transfer of Care Handoff Completed per policy Notes Mental Status: alert / awake / arousable and participated in evaluation Patient Amnestic to Procedure: Yes Nausea / Vomiting: adequately controlled Pain: adequately controlled Airway Patency, RR, SpO2: stable & adequate BP & HR: stable & adequate Hydration State: stable & adequate Neuraxial Anesthesia: was administered and sensory block is resolving Anesthetic Complications: no major complications apparent and Pt Satisfied with anesthetic care
[2020-10-23] MEDS ORDERED: NALOXONE HCL 0.4 MG/1 ML VIAL/CARP IV PRN (14:33)
[2020-10-23] MEDS ORDERED: HYDROmorphone INJ 0.5 MG/0.5 ML SYR IV PRN (14:33)
[2020-10-23] MEDS ORDERED: VANCOMYCIN CONSULT ACTIVE PRN (14:33)
[2020-10-23] MEDS ORDERED: oxyCODONE HCL IR 5 MG TAB (IMMEDIATE RELEASE) PO PRN (14:33)
[2020-10-23] MEDS ORDERED: bisacodyL 10 MG SUPP PR PRN (14:33)
[2020-10-23] MEDS ORDERED: MAGNESIUM HYDROXIDE SUSP 30 ML UDC PO PRN (14:33)
[2020-10-23] MEDS: ACETAMINOPHEN 500 MG TAB PO SCH ×2 (16:02→23:43)
[2020-10-23] MEDS: FERROUS GLUCONATE 324 MG TAB PO SCH (16:02)
[2020-10-23] MEDS: SODIUM CHLORIDE 0.9% 1000ML 1,000 ML IV SCH ×2 (18:47→23:42)
[2020-10-23] MEDS ORDERED: SENNA 8.6 MG TAB PO SCH (21:00)
[2020-10-23] MEDS ORDERED: lisinopril 20 MG TAB PO SCH (21:00)
[2020-10-23] MEDS ORDERED: VANCOMYCIN HCL 1,250 MG in SODIUM CHLORIDE 0.9% 250 ML IV SCH (21:00)
[2020-10-23] MEDS: ASPIRIN 81 MG ECTAB PO SCH (21:29)
[2020-10-23] MEDS: DOCUSATE SODIUM 100 MG CAP PO SCH (21:29)
[2020-10-24] MEDS ORDERED: SODIUM CHLORIDE 0.65% NA SOLN 45 ML (OCEAN) ONE (03:53)
[2020-10-24 06:27] LABS: Hematocrit (blood only) 30.4 % (42-52); Hemoglobin 10.3 g/dL (14.0-18.0); Mean Corpuscular Hemoglobin 31.1 pg (25-34); Mean Corpuscular Hgb Conc 33.9 g/dL (32-36); Mean Corpuscular Volume 91.8 fL (80-100); Mean Platelet Volume 9.3 fL (7.4-10.4); Platelet Count 246 K/uL (130-400); RDW Coefficient of Variation 13.9 % (11.5-14.5); RDW Standard Deviation 46.2 fL (36.4-46.3); Red Blood Count 3.31 M/uL (4.7-6.1); White Blood Count 11.13 K/uL (4.8-10.8)
[2020-10-24 06:56] LABS: BUN Creatinine Ratio 19.3 (10-20); Calcium 8.2 mg/dl (8.5-10.1); Creatinine Clr Calc Pharmacy 84.8 ml/min; Est GFR (African American) 102.1; Est GFR (Non-African American) 88.1; Potassium 4.3 mmol/L (3.5-5.1)
[2020-10-24] MEDS: DOCUSATE SODIUM 100 MG CAP PO SCH (08:42)
[2020-10-24] MEDS: ASPIRIN 81 MG ECTAB PO SCH (08:42)
[2020-10-24] MEDS: ACETAMINOPHEN 500 MG TAB PO SCH (08:42)
[2020-10-24] MEDS: FERROUS GLUCONATE 324 MG TAB PO SCH (08:42)
[2020-10-24] MEDS ORDERED: MULTIVITAMIN TAB PO SCH (09:00)
--- NOTE | 2020-10-24 10:21 | Orthopedic Progress Note ---
Date of Service October 24, 2020 Assessment & Plan (1) Arthritis of right knee: Postop day 1 status post right total knee arthroplasty. PT/OT protocols. Weightbearing as tolerated. DVT prophylaxis with aspirin p.o. twice daily, PHILIPPE Campo. Pain management as written. DC planning-patient planning for home health services. Admission and Anticipated Discharge Date Admission Date: October 23, 2020 Subjective Postop day 1 Patient sitting in a chair at the bedside. Working with physical therapy. Pain controlled overall. He states he has a small amount of discomfort near the patella. Denies shortness of breath, chest pain, lightheadedness. Hoping to go home today. Physical Exam Physical Exam: Dressings are clean, dry, and intact. Calves are soft nontender. Neurovascular intact. Toes are mobile. Hemovac drainage was 125 mL from the previous shift. Results & Data ([facility]) Vital Signs (Past 12 Hours) Vital Signs Temp Pulse Pulse Resp BP BP Pulse Ox 10/24/20 08:10 36.6 C 57 L 16 117/66 97 10/24/20 03:45 36.5 C 62 18 110/62 97 10/23/20 23:30 36.4 C L 61 16 110/61 95 Laboratory Results Laboratory Results WBC 11.13 K/uL (4.8-10.8) H 10/24/20 05:51 RBC 3.31 M/uL (4.7-6.1) L 10/24/20 05:51 Hgb 10.3 g/dL (14.0-18.0) L 10/24/20 05:51 Hct 30.4 % (42-52) L 10/24/20 05:51 MCV 91.8 fL (80-100) 10/24/20 05:51 MCH 31.1 pg (25-34) 10/24/20 05:51 MCHC 33.9 g/dL (32-36) 10/24/20 05:51 RDW Std Deviation 46.2 fL (36.4-46.3) 10/24/20 05:51 RDW Coeff of Helen 13.9 % (11.5-14.5) 10/24/20 05:51 Plt Count 246 K/uL (130-400) 10/24/20 05:51 MPV 9.3 fL (7.4-10.4) 10/24/20 05:51 Immature Gran % (Auto) 0.0 % 09/27/20 14:14 Neut % (Auto) 67.3 % 09/27/20 14:14 Lymph % (Auto) 20.4 % 09/27/20 14:14 [place] % (Auto) 9.3 % 09/27/20 14:14 Eos % (Auto) 2.0 % 09/27/20 14:14 Baso % (Auto) 1.0 % 09/27/20 14:14 Neut # (Auto) 4.13 K/uL (1.4-6.5) 09/27/20 14:14 Lymph # (Auto) 1.25 K/uL (1.2-3.4) 09/27/20 14:14 [place] # (Auto) 0.57 K/uL (0.11-0.59) 09/27/20 14:14 Eos # (Auto) 0.12 K/uL (0-0.5) 09/27/20 14:14 Baso # (Auto) 0.06 K/uL (0-0.2) 09/27/20 14:14 Immature Gran # (Auto) 0.00 K/uL (0.00-0.02) 09/27/20 14:14 PT 10.5 Seconds (9.0-12.0) 09/27/20 14:14 INR 1.0 (0.9-1.1) 09/27/20 14:14 APTT 25.2 Seconds (21.0-31.0) 09/27/20 14:14 PTT Ratio 0.9 09/27/20 14:14 Sodium 137 mmol/L (136-145) 10/24/20 05:51 Potassium 4.3 mmol/L (3.5-5.1) 10/24/20 05:51 Chloride 108 mmol/L (98-107) H 10/24/20 05:51 Carbon Dioxide 23 mmol/L (21-32) 10/24/20 05:51 Anion Gap 6.0 (3-11) 10/24/20 05:51 BUN 17 mg/dl (7-18) 10/24/20 05:51 Creatinine 0.90 mg/dl (0.6-1.4) 10/24/20 05:51 Est Cr Clr Drug Dosing 84.8 ml/min 10/24/20 05:51 Est GFR ( Amer) 102.1 10/24/20 05:51 Est GFR (Non-Af Amer) 88.1 10/24/20 05:51 BUN/Creatinine Ratio 19.3 (10-20) 10/24/20 05:51 Glucose 103 mg/dl (70-99) H 10/24/20 05:51 Estimat Average Glucose 111 mg/dl 09/27/20 14:14 Hemoglobin A1c 5.5 % (4.5-5.6) 09/27/20 14:14 Calcium 8.2 mg/dl (8.5-10.1) L 10/24/20 05:51 Albumin 3.6 gm/dl (3.4-5.0) 09/27/20 14:14 Urine Color Yellow 09/27/20 14:14 Urine Appearance Clear (Clear) 09/27/20 14:14 Urine pH 5.0 (4.5-7.5) 09/27/20 14:14 Ur Specific [place] 1.013 (1.000-1.030) 09/27/20 14:14 Urine Protein Negative (Negative) 09/27/20 14:14 Urine Glucose (UA) Negative (Negative) 09/27/20 14:14 Urine Ketones Negative (Negative) 09/27/20 14:14 Urine Blood Trace (Negative) H 09/27/20 14:14 Urine Nitrite Negative (Negative) 09/27/20 14:14 Urine Bilirubin Negative (Negative) 09/27/20 14:14 Urine Urobilinogen Negative (Negative) 09/27/20 14:14 Ur Leukocyte Esterase Negative (Negative) 09/27/20 14:14 Urine WBC (Auto) 1-5 /hpf (0-5) 09/27/20 14:14 Urine RBC (Auto) 0-4 /hpf (0-4) 09/27/20 14:14 U Hyaline Cast (Auto) 0 /lpf (0-5) 09/27/20 14:14 U Epithel Cells (Auto) 0-5 /lpf (0-5) 09/27/20 14:14 Urine Bacteria (Auto) Negative (Negative) 09/27/20 14:14 Hepatitis C Ab Screen Neg (Neg) 10/24/20 05:51 Blood Type A Positive 09/27/20 14:14 Antibody Screen NEGATIVE 09/27/20 14:14
--- NOTE | 2020-10-25 11:33 | Discharge Summary ---
Date of Service October 25, 2020 Admission HPI Per Admitting Provider Jesus Manuel is a 65 year old male who complains of Right knee pain, presents for pre-op evaluation prior to a Right total knee replacement by dr Hobbs at [facility]. He complains of pain, crepitus, decreased range of motion, instability and stiffness in the Right knee. He states that the symptoms have been chronic and non-traumatic. Currently the patient states that the symptoms are moderate- severe. The pain is described as aching, sharp and throbbing. The symptoms are aggravated by ascending stairs, daily activities, first steps while awake walking. Prior NSAIDs include Aleve and Ibuprofen. He has been treated with pr evious cortisone and visco injections in the past without much relief. Admission Exam Per Admitting Provider Physical Exam: Ht: 5ft 11in Wt: 74.8kg Constitutional: WD/WN, vitals as above no acute distress Respiratory: normal respiratory effort, lungs clear to auscultation no respiratory distress, no labored breathing and does not use accessory muscles Cardiovascular: RRR, no murmur, no edema Gastrointestinal (Abdomen): normal bowel sounds, soft, nontender, no hepatosplenomegaly Musculoskeletal: Knee: + knee abnormal to inspection (right knee), + deformity (valgus), + effusion (+1 effusion), + limited ROM of knee (ROM 0/3/110), + knee ROM with crepitation, + joint line tenderness (medial joint line) and + Rogers's sign positive; no skin erythema, no ecchymosis, no valgus laxity, no varus laxity, anterior drawer test negative, Tuyet's sign negative and pivot shift test negative Principal Diagnosis Right knee osteoarthritis Discharge Data Allergies Allergy/AdvReac Type Severity Reaction Status Date / Time Penicillins Allergy Unknown bottom of Verified 10/23/20 09:00 feet/hands pruritus (as child) Consultations 10/23/20 14:33 Consult Case Management - Discharge Planning Routine Procedures Performed Operation Date: 10/23/20 09:45 Actual Procedures p Right Total Knee Arthroplasty(Right) - Brodie Hobbs DO Ordered Studies 10/23/20 05:00 US - OR guided needle placemen Routine Hospital Course (1) Arthritis of right knee: Date of Service October 24, 2020 Assessment & Plan (1) Arthritis of right knee: Postop day 1 status post right total knee arthroplasty. PT/OT protocols. Weightbearing as tolerated. DVT prophylaxis with aspirin p.o. twice daily, PHILIPPE Campo. Pain management as written. DC planning-patient planning for home health services. Admission and Anticipated Discharge Date Admission Date: October 23, 2020 Patient progressed well with his physical therapy and was remaining stable. It was felt he be discharged home on 10/24/2020. Subjective Postop day 1 Patient sitting in a chair at the bedside. Working with physical therapy. Pain controlled overall. He states he has a small amount of discomfort near the patella. Denies shortness of breath, chest pain, lightheadedness. Hoping to go home today. Physical Exam Physical Exam: Dressings are clean, dry, and intact. Calves are soft nontender. Neurovascular intact. Toes are mobile. Hemovac drainage was 125 mL from the previous shift. Results & Data ([facility]) Vital Signs (Past 12 Hours) Vital Signs Temp Pulse Pulse Resp BP BP Pulse Ox 10/24/20 08:10 36.6 C 57 L 16 117/66 97 10/24/20 03:45 36.5 C 62 18 110/62 97 10/23/20 23:30 36.4 C L 61 16 110/61 95 Laboratory Results Laboratory Results WBC 11.13 K/uL (4.8-10.8) H 10/24/20 05:51 RBC 3.31 M/uL (4.7-6.1) L 10/24/20 05:51 Hgb 10.3 g/dL (14.0-18.0) L 10/24/20 05:51 Hct 30.4 % (42-52) L Total Time Total Time Spent Total Time Spent (In Minutes): 5 Discharge Plan Discharge Items Patient Disposition: Home - Home Health Services Reason For Visit: Unilateral Primary Osteoarthrits Knee Right Discharge Diagnosis: Osteoarthritis right knee Activity: Per Instructions section Weightbearing: Right weightbearing Weightbearing Comment: as tolerated with walker Non-emergency contact: Surgeon Call non-emergency contact if: your pain is not controlled, your temperature is above 101.5, your wound has increased redness and your wound has increased drainage Follow-up/Referrals: Brodie Hobbs DO [Surgeon] - (f/u in 10-14 days for wound check) Mike Valles D.O. [Primary Care Provider] - Diet: Regular Addtl Attending Provider Instructions: ACTIVITY RECOMMENDATIONS: SELF CARE INSTRUCTIONS AFTER TOTAL KNEE REPLACEMENT A. You may need to continue a physical therapy program after discharge from the hospital. There are several options available to you. Your doctor will assist you in selecting the best one for you. 1. An out-patient facility 2 to 3 times a week for therapy or home therapy. 2. Continue working on all exercises taught to you in the hospital. Your goals should be to increase bending of your knee to 90 degrees and beyond and to fully straighten your knee. B. You may progress at your own pace from walking with a walker or crutches to a cane; then to no assistive devices. C. Make walking a part of your daily routine. Be up as much as comfortable with rest periods throughout the day. Rest with leg elevation is very important. Use the ice wrap frequently for the first 3-4 weeks. D. There are no restrictions on activities. You may ride in a car, shop, participate in plush brusher and all social activities. E. Wear the long elastic stockings (PHILIPPE hose) 20 hours a day for 2 weeks after surgery. They can be removed several times a day for laundering and for a bath. F. You may shower, no tub baths until cleared by your doctor. SPECIAL CARE INSTRUCTIONS: VERY IMPORTANT TO READ AND REVIEW A. There are a few signs you need to watch for after you are home. Call [facility] if you notice any of the followin. Increased severe knee pain. Some pain is expected especially when you exercise. 2. Increased swelling in your leg or knee; pain or swelling of the calf muscle in either lower leg. 3. Any fluid drainage from the incision. 4. Shortness of breath or chest pain. B. Please call [facility] at if you have any concerns or questions about your operation or recovery. The doctor or his nurse will return your call promptly. C. You must take antibiotics before dental work, bladder, bowel or other surgery. Your doctor will provide you with a permanent care to carry describing this precaution. IMPORTANT: * REMEMBER TO TAKE ASPIRIN, 81 MG, TWICE DAILY FOR 4 WEEKS UNLESS OTHERWISE DIRECTED. THIS IS YOUR BLOOD THINNER. * HIGH RISK PATIENTS MAY BE PRESCRIBED A STRONGER BLOOD THINNER. THIS WILL BE PROVIDED AT DISCHARGE. * CALL IF INCREASED PAIN, REDNESS, DRAINAGE OR FEVER GREATER THAT 101. * WEAR PHILIPPE HOSE 20 HOURS PER DAY FOR 2 WEEKS. * UMESH Dressing - This is a large suction dressing covering your incision. This will help pull any excess drainage from the wound and allow your incision to heal properly. You may shower with this if you can keep the unit outside of the shower. If any bleeding or leakage is noted please call your doctor's office. This will remain on your incision for 7 days and then should be removed. This can be done yourself or by the home nursing staff if applicable. The entire unit is disposable once removed. Once removed, keep incision clean and dry. If redness or drainage is noted, please call your surgeon. . FOLLOW UP VISIT: If appointment is not already scheduled: Please call [facility] to make a follow-up appointment for 2 weeks after your surgery at . If you have any questions or concerns over the weekend, please call our answering service at [phone]. They will get you in touch with our on-call physician and PA staff. Stand-Alone Forms: My [facility] [employer] Helping Hand, Opioid Pain Management, Smoking Cessation Medications and DC Order Prescriptions: New aspirin 81 mg Tablet,Delayed Release (Dr/Ec) 81 mg PO BID 30 Days Qty: 60 RF: 0 acetaminophen 500 mg Tablet 1,000 mg PO Q8H 14 Days Qty: 84 RF: 0 oxycodone 5 mg Tablet 5 mg PO Q4H MDD 6 PRN (Reason: pain) Qty: 30 RF: 0 celecoxib [Celebrex] 200 mg capsule 200 mg PO BID PRN (Reason: pain) Qty: 60 RF: 0 Continued lisinopril 20 mg Tablet 20 mg PO PM RF: 0 sildenafil 100 mg Tablet 100 mg PO UD PRN (Reason: Anxiety) RF: 0 sennosides [Senokot] 8.6 mg Tablet 17.2 mg PO HS PRN (Reason: constipation) Qty: 30 RF: 0 Discontinued oxycodone 5 mg Tablet 5 mg PO Q4H MDD 6 tabs PRN (Reason: pain) Qty: 30 RF: 0 Discharge Orders: Discharge Order (Routine); Ordered 10/24/20 Ordered By: Alexsander Tidwell/Other Patient Handouts: DVT Post Op Prevention Admission Data Admit Date/Time: 10/23/20 13:23 Attending Provider: Brodie Hobbs Admit Provider: Brodie Hobbs Primary Care Provider: Mike Valles Other Interventions: Discharge Summary Assessment (RN) Last Done: 10/24/20 10:45
== END 2020-10-24 14:12 | disposition home health service (06) ==
LOC: PAT 08:29 → 3E 08:29